=== PATIENT | male | born 1975 | race Caucasian/White ===

== ENCOUNTER 2016-07-12 18:59 | Emergency (ER) | payer OTHER ==
[~2016-07-12] VITALS: Ht 172.7 cm; Wt 89.7 kg
[~2016-07-12 18:59] MED LIST: AUGMENTIN875 MG PO; CLINDAMYCIN HC300 MG PO; FIORICET,ESG1 TABLET PO; FLEXERIL5 MG PO; HYDROCODON-ACE1 EAC7 PO; KADIAN60 MG PO; KEFLEX500 MG PO; MILLIPRED DP5 MG PO; MOTRIN600 MG PO; MS CONTIN,ORAMO60 MG PO; OXYCODONE HCL15 MG PO; PERCOCET 5/31 TABLET PO; ZOFRAN ODT4 MG PO
[2016-07-12] MEDS ORDERED: TOBREX5 ML RIGHT EYE (19:43)
[2016-07-12 19:55] VITALS: BP 139/93
== END 2016-07-12 19:57 | disposition home or self-care (01) ==
LOC: EME 18:59
PROC: 08C8XZZ Extirpation of Matter from Right Cornea, External Approach (ICD-10-PCS; principal; 2016-07-12)
DX: T15.01XA Foreign body in cornea, right eye, initial encounter (principal); W20.8XXA Other cause of strike by thrown, projected or falling object, initial encounter; Y99.0 Civilian activity done for income or pay; F17.200 Nicotine dependence, unspecified, uncomplicated
CPT/HCPCS: 99281; 99283